=== PATIENT | male | born 1990 | race African-American/Black ===

== ENCOUNTER 2021-10-14 11:22 | Emergency (ER) | payer SELFPAY ==
[2021-10-14 11:39] VITALS: BP 135/81; PULSE 67; RESP 18; TEMP 37.2; O2SAT 98; BMI 32.5
--- NOTE | 2021-10-14 11:56 | ED_ITS ---
HPI - General Adult General Chief complaint: Unspecified Complaint, Adult Stated complaint: Spit up blood yesterday Time Seen by Provider: 10/14/21 11:42 History of Present Illness HPI narrative: This 30-year-old male comes in with the report of spitting up some blood yesterday. He states that he has not had a cough and did not have any nausea or vomiting. He cleared his throat yesterday and up came a mixture of sputum and some bright red blood. He states that he feels normal. He does not smoke or use alcohol. He is in good health otherwise. Related Data Home Medications Medication Instructions Recorded Confirmed No Known Home Medications 10/14/21 10/14/21 Allergies Allergy/AdvReac Type Severity Reaction Status Date / Time No Known Drug Allergies Allergy Verified 10/14/21 11:39 Review of Systems Status of ROS: Reports: 10 or more systems reviewed and unremarkable except as noted in History and below Narrative: Constitutional: No fevers, no weight gain or loss. Eyes: No discharge. No vision changes. HENT: No congestion, no sore throat, no ear pain. Cardiovascular: No chest pain, no palpitations. Respiratory: No shortness of breath, no wheezes, no cough. Gastrointestinal: No abdominal pain, no vomiting, no diarrhea. Genitourinary: No dysuria, no hematuria. Musculoskeletal: Normal range of motion. Skin: No rashes, no pruritis. Neurological: No dizziness, weakness, sensory change, speech change. Endo/Heme/Allergies: No bruising or bleeding. No polydipsia. Pysch: no suicidality, no anxiety, no insomnia. All other systems reviewed and are negative. PFSH PFS Social History Smoking Status: Unknown if ever smoked Do you use any of these nicotine containing products: None How often do you have a drink containing alcohol: 2-4 times a month How often do you have six or more drinks on one occasion: Never AUDIT-C Alcohol total score: 2 Non-prescribed substance use: denies use Exam Narrative: Exam Narrative: Constitutional: Well-developed, well-nourished, no acute distress. HEENT: Normocephalic, atraumatic. Oropharynx appears normal. No sign of blood. Neck: Normal range of motion. Nontender. Supple. Heart: Regular. No murmurs. Normal rate. Intact distal pulses. Lungs: Clear to auscultation. No chest discomfort. No wheezes, rhonchi, or rales. Abdomen: Normal bowel sounds. Nontender. No rebound tenderness. Genitalia: Deferred. Back: No midline tenderness. Normal range of motion. Extremities: Normal range of motion. No injury. Skin: Intact. No rash. Warm. No erythema or pallor. Neurologic: No altered sensation. No weakness. Alert and oriented. Psychiatric: No suicidality. No anxiety or depression. No insomnia. Nursing notes and vitals signs are reviewed. Const: Vital Signs, click to edit/add: Vital Signs - 24 hr 10/14/21 11:39 Temperature 99.0 F Pulse Rate [Right] 67 Respiratory Rate 18 Blood Pressure [Ri ght Upper Arm] 135/81 Pulse Oximetry 98 Oxygen Delivery Me thod Room Air Course Vital Signs Vital signs: Initial Vital Signs Temperature 99.0 F 10/14/21 11:39 Temperature Source Temporal Artery Scan 10/14/21 11:39 Pulse Rate 67 10/14/21 11:39 Respiratory Rate 18 10/14/21 11:39 Blood Pressure 135/81 10/14/21 11:39 Blood Pressure Mean 99 10/14/21 11:39 Blood Pressure Position Sitting 10/14/21 11:39 Pulse Oximetry 98 10/14/21 11:39 Oxygen Delivery Method 10/14/21 11:39 Vital Signs Temperature 99.0 F 10/14/21 11:39 Pulse Rate 67 10/14/21 11:39 Respiratory Rate 18 10/14/21 11:39 Blood Pressure 135/81 10/14/21 11:39 Pulse Oximetry 98 10/14/21 11:39 Oxygen Delivery Method 10/14/21 11:39 Temperature 99.0 F 10/14/21 11:39 Pulse Rate 67 10/14/21 11:39 Respiratory Rate 18 10/14/21 11:39 Blood Pressure 135/81 10/14/21 11:39 Pulse Oximetry 98 10/14/21 11:39 Oxygen Delivery Method 10/14/21 11:39 Medical Decision Making MDM Narrative Medical decision making narrative: This patient comes in reporting a single episode of blood-tinged sputum that he spit up yesterday. He states that he feels normal otherwise. This does bring a bout some anxiety for him with regard to his health. I did check labs in these returned with all normal results. Additionally his vital signs and exam are normal. This was sufficiently reassuring for the patient. He is okay to be discharged home to continue current plans. If symptoms are recurrent or worsening he should follow-up for further evaluation. Lab Data Labs: Lab Results 10/14/21 10/14/21 Range/Units 12:27 12:27 WBC 5.13 (4.50-11.00) K/uL RBC 5.23 (4.30-5.90) m/uL Hgb 14.9 (13.5-17.5) gm/dL Hct 47.0 (37.0-53.0) % MCV 90 (80-100) fL MCH 29 (26-34) pg MCHC 32 (32-36) gm/dL RDW Coeff of Suzan 11.7 (11.5-15.5) % Plt Count 274 (140-440) K/uL Neut % (Auto) 50.4 (42.0-72.0) % Lymph % (Auto) 35.1 (20-44) % [place] % (Auto) 8.8 (0.0-11.0) % Eos % (Auto) 4.3 (0.0-7.0) % Baso % (Auto) 0.8 (0.0-3.0) % Neut # (Auto) 2.59 (1.7-7.0) K/uL Lymph # (Auto) 1.80 (0.90-2.90) K/uL [place] # (Auto) 0.50 (0.00-0.90) K/UL Eos # (Auto) 0.22 (0.00-0.50) K/uL Baso # (Auto) 0.04 (0.00-0.30) K/uL Abs Immat Gran (auto) 0.03 (0.00-0.30) K/uL Sodium 141 (135-149) mmol/L Potassium 4.3 (3.6-5.1) mmol/L Chloride 102 (96-114) mmol/L Carbon Dioxide 32 (20-32) mmol/L BUN 23 (5-24) mg/dL Creatinine 1.0 (0.5-1.5) mg/dL Estimated Creat Clear 108.01 Estimated GFR 104 ml/min Glucose 96 (60-115) mg/dL Calcium 9.7 (8.4-10.6) mg/dL Discharge Plan Discharge Clinical Impression: Blood-tinged sputum Patient Disposition: Home, Self-Care Condition: Stable Additional Instructions: Use [id number] medicines as needed and directed. Follow up with MD or return if recurrent or worsening symptoms happen. Prescriptions: No Action No Known Home Medications Follow Up/Referrals: Provider,Not a Local [Primary Care Provider] - Stand Alone Forms: PasswordBank Info Instructions
[2021-10-14 12:49] LABS: Basophils Absolute Auto 0.04 K/uL (0.00-0.30); Basophils Percent Auto 0.8 % (0.0-3.0); Eosinophils Absolute Auto 0.22 K/uL (0.00-0.50); Eosinophils Percent Auto 4.3 % (0.0-7.0); Hemoglobin* 14.9 gm/dL (13.5-17.5); Immature Granulocytes Abs Auto 0.03 K/uL (0.00-0.30); Lymphocytes Percent Auto 35.1 % (20-44); Mean Corpuscular HGB Conc 32 gm/dL (32-36); Mean Corpuscular Hemoglobin 29 pg (26-34); Mean Corpuscular Volume 90 fL (80-100); Monocytes Percent Auto 8.8 % (0.0-11.0); Neutrophils Absolute Auto 2.59 K/uL (1.7-7.0); Neutrophils Percent Auto 50.4 % (42.0-72.0); Platelet Count* 274 K/uL (140-440); RDW Coefficient of Variation % 11.7 % (11.5-15.5); Red Blood Count 5.23 m/uL (4.30-5.90); White Blood Count* 5.13 K/uL (4.50-11.00)
[2021-10-14 12:55] LABS: Slide Review Reflex No
[2021-10-14 13:25] LABS: Chloride* 102 mmol/L (96-114); Potassium* 4.3 mmol/L (3.6-5.1); Sodium* 141 mmol/L (135-149)
[2021-10-14 13:28] LABS: Carbon Dioxide* 32 mmol/L (20-32); Est. Creatinine Clearance* 108.01; Estimated Glomerular Filt Rate 104 ml/min
[2021-10-14 13:29] LABS: Blood Urea Nitrogen* 23 mg/dL (5-24); Calcium* 9.7 mg/dL (8.4-10.6); Glucose* 96 mg/dL (60-115)
== END 2021-10-14 13:48 | disposition home or self-care (01) ==
PROVIDERS: Emergency Provider Emergency Medicine Emergency Medical Services
DX: R04.2 Hemoptysis (principal)
CPT/HCPCS: 36415; 80048; 85025; 99282; 99283; 99284